=== PATIENT | male | born 1980 | race Caucasian/White ===

== ENCOUNTER 2019-09-10 20:24 | Emergency (ER) | payer OTHER ==
--- NOTE | 2019-09-10 21:23 | EDM.PDOC ---
ED HPI GENERAL MEDICAL PROBLEM - General Chief Complaint: Laceration Stated Complaint: CUT ON LT POINTER FINGER Time Seen by Provider: 09/10/19 21:19 Source of Information: Reports: Patient History Limitations: Reports: No Limitations - History of Present Illness INITIAL COMMENTS - FREE TEXT/NARRATIVE: Patient presents for evaluation of an injury to the pad of the left index finger from a portable circular saw blade. He was using the saw tonight and it accidentally contacted the surface of that finger. He can flex the finger at that joint. There was some bleeding at the time of injury. No other injuries associated with this event. Onset: Today Location: Reports: Upper Extremity, Left (Left index finger.) left forefinger Pain Score (Numeric/FACES): 2 - Related Data Allergies Allergy/AdvReac Type Severity Reaction Status Date / Time No Known Allergies Allergy Verified 09/10/19 21:05 Home Meds: Home Meds Lisinopril/Hydrochlorothiazide [Lisinopril-Hctz 20-12.5 mg Tab] 1 each PO DAILY 09/10/19 [History] Metoprolol Tartrate [Lopressor] 50 mg PO DAILY 09/10/19 [History] Simvastatin [Zocor] 20 mg PO BEDTIME 09/10/19 [History] Past Medical History Cardiovascular History: Reports: High Cholesterol, Hypertension Musculoskeletal History: Reports: Fracture Endocrine/Metabolic History: Reports: Obesity/BMI 30+ Social & Family History - Tobacco Use Smoking Status *Q: Never Smoker - Caffeine Use Caffeine Use: Reports: Coffee - Alcohol Use Days Per Week of Alcohol Use: 1 Number of Drinks Per Day: 1 Total Drinks Per Week: 1 - Recreational Drug Use Recreational Drug Use: No ED ROS GENERAL - Review of Systems Review Of Systems: Comprehensive ROS is negative, except as noted in HPI. Musculoskeletal: Reports: Other (Left index finger pad laceration.) ED EXAM, SKIN/RASH Exam: See Below Exam Limited By: No Limitations General Appearance: Mild Distress Extremities: Other (There is a 1.5 cm superficial laceration on the pad of the left index finger. The edges are somewhat jagged consistent with a sawblade injury. Bleeding is controlled at this time. Pressure around the laceration causes subcutaneous fat to protrude through the opening. He can flex the finger without limitation.) ED SKIN PROCEDURES - Laceration/Wound Repair Left Upper Anterior Midline Distal Digit - 2nd (Index) Appearance: Subcutaneous Distal NVT: Neuro & Vascular Intact Anesthetic Type: Local Local Anesthesia - Lidocaine (Xylocaine): 1% with EPI Local Anesthetic Volume: 2cc Skin Prep: Chlorhexidine (Hibiciens) Saline Irrigation (cc's): 80 Exploration/Debridement/Repair: Wound Explored, No Foreign Material Found Closed with: Sutures Lac/Wound length In cm: 1.5 Suture Size: 4-0 # of Sutures: 4 Suture Type: Nylon Drain Placement: No Sterile Dressing Applied: Nurse Tetanus Status Addressed: Yes Complications: No Course - Vital Signs Last Recorded V/S: Last Vital Signs Temp 36.1 C 09/10/19 21:12 Pulse 86 09/10/19 21:12 Resp 18 09/10/19 21:12 BP 173/98 H 09/10/19 21:12 Pulse Ox 97 09/10/19 21:12 - Orders/Labs/Meds Meds: Medications Discontinued Medications Generic Name Dose Route Start Last Admin Trade Name Freq PRN Reason Stop Dose Admin Bacitracin 1 dose 09/10/19 23:28 09/10/19 23:35 Bacitracin Oint 1 Gm TOP 09/10/19 23:29 1 dose ONETIME ONE Administration - Re-Assessments/Exams Free Text/Narrative Re-Assessment/Exam: 09/11/19 03:51 I reviewed wound approximation options with patient that I believe that sutures will help it heal in the best way. He agrees and we proceeded after reviewing the planned procedure. He should keep this first dressing on and dry for the next 3 days. Routine water washing can be done afterwards along with topical bacitracin and Band-Aid covering until the sutures are removed in approximately 10 days. Reasons to return to emergency department reviewed. Departure - Departure Time of Disposition: 23:25 Disposition: Home, Self-Care 01 Condition: Good Clinical Impression: Laceration of finger of left hand - Discharge Information *PRESCRIPTION DRUG MONITORING PROGRAM REVIEWED*: Not Applicable *COPY OF PRESCRIPTION DRUG MONITORING REPORT IN PATIENT KAMI: Not Applicable Instructions: Laceration Care, Adult Referrals: PCP,None [Primary Care Provider] - Forms: ED Department Discharge Additional Instructions: Keep first bandage on and finger dry until Thursday morning, 13 September. Stitches , 4 of them, should remain in the finger for 10 days. They can be removed by nursing staff here or at any clinic location. Watch for signs of redness, pus drainage, increased swelling. Elevate the hand as much as possible for comfort. Daily soap and water washing is appropriate. You do not need to use alcohol, peroxide, iodine on the injured area. Keep it covered with a Band-Aid until stitches are removed. Return to ER if feeling worse in anyway. Sepsis Event Note - Evaluation Sepsis Screening Result: No Definite Risk - Focused Exam Vital Signs: Vital Signs Temp Pulse Resp BP Pulse Ox 09/10/19 21:12 36.1 C 86 18 173/98 H 97 09/10/19 21:05 36.1 C 86 15 173/98 H 97 Date Exam was Performed: 09/11/19 Time Exam was Performed: 03:45
--- NOTE | 2019-09-10 21:54 | CRLCR ---
Exam: Three views of the left index finger. INDICATION: Injury with a saw blade. COMPARISON: None. FINDINGS: The distal middle and proximal phalanx are intact. There is no radiopaque foreign body. Alignment is maintained. IMPRESSION: Negative left hand index finger radiograph. No evidence of fracture or foreign body. Dictated by Luciano Gamble MD @ Sep 10 2019 9:51PM Signed by Dr. Luciano Gamble @ Sep 10 2019 9:53PM
[2019-09-10] MEDS ORDERED: Bacitracin Oint 1 GM U/D Packet TOP ONE (23:28)
== END 2019-09-10 23:41 | disposition home or self-care (01) ==
LOC: JP.ED 20:24
DX: S61.211A Laceration without foreign body of left index finger without damage to nail, initial encounter (principal); I10 Essential (primary) hypertension; Z79.899 Other long term (current) drug therapy; W31.2XXA Contact with powered woodworking and forming machines, initial encounter
CPT/HCPCS: 12001; 73140-F1; 99283-25